=== PATIENT | female | born 1940 | race Caucasian/White ===

== ENCOUNTER 2019-02-24 01:48 | Inpatient (IN) ==
[2019-02-24] MEDS ORDERED: DUONEB (A & A) INH ONE (02:12)
[2019-02-24] MEDS ORDERED: MUCINEX PO ONE (02:13)
--- NOTE | 2019-02-24 02:15 | PROVIDER DOCUMENTATION ---
HPI-Respiratory General - General Chief Complaint: Shortness of Breath Stated Complaint: CONGESTION/COUGH Time Seen by Provider: 02/24/19 02:03 Source: family Allergies/Adverse Reactions: Patient Allergies Allergy/AdvReac Type Severity Reaction Status Date / Time ciprofloxacin [From Cipro] Allergy Unknown Verified 10/31/17 18:38 Penicillins Allergy Unknown Verified 10/31/17 18:38 Home Medications: Home Medication List Medication Instructions Recorded Confirmed Last Taken Type Amiodarone HCl 200 mg PO DAILY 02/05/17 02/24/19 10/31/17 08:00 History Apixaban [Eliquis] 2.5 mg PO BID 02/05/17 02/24/19 10/31/17 08:00 History Baclofen 5 mg PO BID 02/05/17 02/24/19 10/31/17 08:00 History Citalopram Hydrobromide 40 mg PO DAILY 02/05/17 02/24/19 10/31/17 08:00 History [Citalopram HBr] Docusate Sodium 100 mg PO DAILY 02/05/17 02/24/19 10/31/17 08:00 History Fluticasone 50 Mcg Nasal [place] 1 spray MAXIME DAILY 02/05/17 02/24/19 10/31/17 08:00 History [Flonase] Gemfibrozil 1 tab PO DAILY 02/05/17 02/24/19 10/31/17 08:00 History Glycerin Adult 1 cap RC DAILY PRN 02/05/17 02/24/19 02/05/17 History Lactulose 30 ml PO DAILY PRN 02/05/17 02/24/19 02/05/17 History Loratadine 1 tab PO DAILY 02/05/17 02/24/19 10/31/17 08:00 History Magnesium Hydroxide [Milk of 30 ml PO DAILY PRN 02/05/17 02/24/19 Unknown History Magnesia] Omeprazole 20 mg PO DAILY 02/05/17 02/24/19 10/31/17 08:00 History Rosuvastatin Calcium [Crestor] 20 mg PO HS 02/05/17 02/24/19 10/30/17 20:00 History Sennosides [Perdiem] 2 - 4 tab PO PRN PRN 02/05/17 02/24/19 Unknown History Cholecalciferol (Vitamin D3) 1,000 unit PO DAILY 12/22/17 02/24/19 Unknown History [Vitamin D3] Linaclotide [Linzess] 1 tab PO DAILY 12/22/17 02/24/19 Unknown History Acetaminophen [Tylenol] 650 mg PO Q6H PRN PRN tablet 12/24/17 02/24/19 Unknown Rx Albuterol 2.5MG/Ipratrop 0.5MG 3 ml INH Q4-6H PRN PRN neb 12/24/17 02/24/19 Unknown Rx [Duoneb (A & A)] Alprazolam 0.5 - 1 tab PO Q6-8H PRN PRN #10 12/24/17 02/24/19 Unknown Rx tab Gabapentin 300 mg PO DAILY #30 cap 12/24/17 02/24/19 Unknown Rx Hydrocodone Bit/Acetaminophen 1 tab PO BID PRN #20 tab 12/24/17 02/24/19 Unknown Rx [Hydrocodon-Acetaminophen 5-325] Potassium Chloride [K-Tab] 10 meq PO DAILY #7 tablet.er 06/06/18 02/24/19 Unknown Rx Albuterol Sulfate Inhaler 2 puff INH Q6H PRN PRN #1 inhaler 02/22/19 02/24/19 Unknown Rx [Ventolin Hfa] Codeine Phosphate/Guaifenesin 10 ml PO Q4H PRN PRN 02/24/19 02/24/19 Unknown History [Codeine-Guaifen 10-100 mg/5 ml] - History of Present Illness-Resp Nature of Presenting Problem: HISTORY OF STROKE WITH EXPRESSIVE APHASIA CAME IN WITH DAUGHTER WITH CONCERN OF PRODUCTIVE COUGH THAT'S WORSE WHICH PATIENT WAS SEEN RECENTLY. DENIES FEVER, CHILL, NIGHT SWEATS, RECENT TRAVEL. DENIES UNINTENTIONAL WEIGHT LOSS. DENIES DYSURIA. Review of Systems - Adult - REVIEW OF SYSTEMS - ADULT Constitutional: denies: chills, fever, fatique, night sweats, weight loss Eyes: reports: no symptoms reported Ears, Nose, Mouth & Throat: reports: no symptoms reported Cardiovascular: reports: no symptoms reported Respiratory: reports: cough, excessive sputum production, shortness of breath. denies: dyspnea on exertion, hemoptysis, pleurisy, wheezing Gastrointestinal: reports: no symptoms reported Genitourinary: reports: no symptoms reported Musculoskeletal: reports: no symptoms reported Integumentary: reports: no symptoms reported Neurological: reports: no symptoms reported Psychiatric: reports: no symptoms reported Endocrine: reports: no symptoms reported Hematologic/Lymphatic: reports: no symptoms reported Allergic/Immunologic: reports: no symptoms reported Past History - Adult - PAST MEDICAL HISTORY-ADULT Review of Records: reports: Old Records Reviewed Major Childhood Illnesses: reports: denies history Cardiovascular: reports: A-Fib, HTN, hyperlipidemia Respiratory: reports: denies history Gastrointestinal: reports: other (constipation) Obstetrical/Gynecological: reports: denies history Genitourinary: reports: denies history Musculoskeletal: reports: arthritis (ra deformed hands) Neurological: reports: CVA, stroke deficits (right sided), TIA Psychiatric: reports: depression Endocrine/Immune: reports: denies history Other Conditions: reports: denies history - PRIOR SURGERIES/PROCEDURES Surgical/Procedure History: reports: tonsillectomy, joint replacement (total knee) - IMMUNIZATION STATUS Childhood Immunizations: See Nurse Assessment Flu Vaccine: See Nurse Assessment - FAMILY HISTORY Family History: reviewed, not pertinent Physical Exam-General - PHYSICAL EXAM-ADULT Initial Vital Signs Reviewed: Yes - CONSTITUTIONAL General Appearance: appears well, alert, no apparent distress - EYES Eyes: PERRL/EOMI - HEAD, EARS, NOSE, MOUTH & THROAT HENMT: normocephalic/atraumatic, moist mucous membranes, normal ENT inspection - NECK Neck: non-tender, full range of motion, supple, normal inspection - RESPIRATORY Respiratory: chest non-tender, no pleuratic chest pain, no respiratory distress, no accessory muscle use, rales - CARDIOVASCULAR Cardiovascular: normal peripheral pulses, regular rate, rhythm, no edema, no gallop, no JVD, no murmur - GASTROINTESTINAL (ABDOMEN) Abdominal Exam: normal bowel sounds, non tender, soft - MUSCULOSKELETAL Back Exam: normal inspection, no CVA tenderness, no vertebral tenderness Extremity: normal range of motion, non-tender, normal gait - SKIN Integumentary: normal color, normal turgor, warm/dry - NEUROLOGIC Neurologic: grossly normal - PSYCHIATRIC Psych/Mental Status: normal mood/affect, normal thought content, normal thought process, oriented x 3 Progress - PLAN OF CARE/RESULTS Progress/Plan/Lab Results: Vital Signs - 8 hr 02/24/19 01:51 02/24/19 02:38 02/24/19 03:56 Temperature 97.7 F Pulse Rate 78 77 78 Respiratory Rate 22 22 21 Blood Pressure 101/71 102/66 O2 Sat by Pulse Oximetry 91 L 98 94 L Laboratory Results - last 24 hr 02/24/19 02/24/19 02/24/19 02:48 02:48 02:48 WBC 17.30 H D RBC 3.94 L Hgb 11.6 L Hct 37.7 MCV 95.7 MCH 29.4 MCHC 30.8 L RDW Std Deviation 14.7 H Plt Count 202 MPV 9.2 Immature Gran % (Auto) 0.5 Neut % (Auto) 86.2 H Lymph % (Auto) 7.2 L [place] % (Auto) 5.7 Eos % (Auto) 0.3 Baso % (Auto) 0.1 Immature Gran # (Auto) 0.09 H Neut # (Auto) 14.90 H Lymph # (Auto) 1.24 Wheeler # (Auto) 0.99 H Eos # (Auto) 0.06 Baso # (Auto) 0.02 Sodium 132 L Potassium 3.8 Chloride 102 Carbon Dioxide 19 L Anion Gap 11 BUN 15 Creatinine 0.7 Estimated GFR/1.73 m2 > 60 BUN/Creatinine Ratio 21 Glucose 86 Calculated Osmolality 265 Calcium 9.3 Magnesium 1.7 Plasma Lactate 02/24/19 02:48 WBC RBC Hgb Hct MCV MCH MCHC RDW Std Deviation Plt Count MPV Immature Gran % (Auto) Neut % (Auto) Lymph % (Auto) [place] % (Auto) Eos % (Auto) Baso % (Auto) Immature Gran # (Auto) Neut # (Auto) Lymph # (Auto) Wheeler # (Auto) Eos # (Auto) Baso # (Auto) Sodium Potassium Chloride Carbon Dioxide Anion Gap BUN Creatinine Estimated GFR/1.73 m2 BUN/Creatinine Ratio Glucose Calculated Osmolality Calcium Magnesium Plasma Lactate 0.8 Orders Category Date Time Status Admit - [facility] Routine AdmDCTranf 02/24/19 04:13 Active Resuscitation Status Routine Care 02/24/19 04:13 Ordered Saline Loc DIRECTED Care 02/24/19 04:13 Active Vital Signs Order ROUTINE Care 02/24/19 04:13 Active Z-Document. for Tele Applied ORDERED Care 02/24/19 04:14 Active NPO Diet 02/24/19 04:14 Active cxr [CHEST-PORTABLE] [RAD] Stat Exams 02/24/19 03:05 Taken BASIC METABOLIC PANEL [CHEM] Stat Lab 02/24/19 02:48 Completed BLOOD CULTURE [BLDCUL] Stat Lab 02/24/19 02:38 Ordered CBC WITH DIFF [HEME] Stat Lab 02/24/19 02:48 Results LACTATE, PLASMA [CHEM] Stat Lab 02/24/19 02:48 Completed MAGNESIUM [CHEM] Stat Lab 02/24/19 02:48 Completed 0.9% Sodium Chloride Inj [Ns] 1,000 ml Med 02/24/19 04:13 Active IV 75 mls/hr Albuterol 2.5MG/Ipratrop 0.5MG [Duoneb (A & A)] Med 02/24/19 02:12 Discontinued 3 ml INH NOW ONE CefTRIAXONE [Rocephin] 1 gm Med 02/24/19 04:15 Ordered 0.9% Sodium Chloride Inj [Ns] 50 ml IV Q24H Guaifenesin E.r. [Mucinex] Med 02/24/19 02:13 Discontinued 600 mg PO NOW ONE Metronidazole 500 mg/Ns [Flagyl 500 mg/Ns] Med 02/24/19 04:15 Ordered 500 mg in 100 ml IV Q6H Aerosol Treatments Routine Oth 02/24/19 02:12 Completed Aerosol Treatments Stat Oth 02/24/19 02:12 Completed Oxygen Device Routine Oth 02/24/19 04:14 Active Telemetry [OM.EQ] Routine Oth 02/24/19 04:13 Active Transfer/Admit Order [TRANSFER] Routine Transfer 02/24/19 04:15 Ordered Result Diagrams: 02/24/19 02:48 02/24/19 02:48 - REASSESSMENT Reassessment #1 Time Reassessed: 04:16 Status: other (THERE APPEARS TO BE RIGHT LOWER LOB INFILTRAITON WITH WBC CONCERN FOR ASPIRATION PNA IN PATIENT W/ EXPRESSIVE APHAGIA. SPOKE TO [facility]; WILL ADMIT.) Departure - Departure Date of Disposition Decision: 02/24/19 Time of Disposition Decision: 04:16 DIAGNOSIS: Aspiration pneumonia Disposition: ADMITTED INPATIENT 09 Certified Medical Emergency: Emergent Condition: Fair Referrals and Follow-Ups: Bry Pineda MD [Primary Care Provider] - - Critical Care Note This patient required my direct & personal management of CC.: No Attestation - Physician/ CANDICE Attestation Patient care was provided by Advanced Practice Provider:: No The physician spent face to face time with patient:: Yes Advanced Practice Provider documentation review:: Supervising physician onsite and consulted in the evaluation and care of this patient. The physician did have a face to face encounter with the patient.
[2019-02-24 03:30] LABS: AGAP 11; BUN 15 mg/dL (8-22); CALCIUM 9.3 mg/dL (8.8-10.2); CHLORIDE 102 mmol/L (98-107); COSMO 265; CREATININE 0.7 mg/dL (0.5-0.9); ESTIMATED GFR > 60; GLUCOSE 86 mg/dL (70-104); POTASSIUM 3.8 mmol/L (3.5-5.1); SODIUM 132 mmol/L (136-145); TCO2 19 mmol/L (25-35)
[2019-02-24 03:58] LABS: BASO# 0.02 X1000 (0.0-0.2); BASO% 0.1 % (0.0-0.8); EOS# 0.06 X1000 (0.0-0.7); EOS% 0.3 % (0.0-10.0); HEMATOCRIT 37.7 % (37.0-47.0); HEMOGLOBIN 11.6 g/dL (12.0-16.0); IMM GRAN# 0.09 X1000 (0.0-0.04); IMM GRAN% 0.5 % (0.0-0.5); LYMPH# 1.24 X1000 (1.2-3.4); LYMPH% 7.2 % (20.5-51.1); MCH 29.4 PG (27-31); MCHC 30.8 g/dL (33-37); MCV 95.7 FL (81-99); MONO# 0.99 X1000 (0.11-0.59); MONO% 5.7 % (1.7-9.3); MPV 9.2 FL (7.4-10.4); NEUT% 86.2 % (42.2-75.2); PLT 202 X1000 (130-400); RBC 3.94 XMIL (4.2-5.4); RDW 14.7 % (11.5-14.5)
[2019-02-24] MEDS ORDERED: NS 1,000 ML IV ONE (04:13)
[2019-02-24] MEDS: ROCEPHIN 1 GM in NS 50 ML IV SCH (04:15)
[2019-02-24 04:20] LABS: SEGS 90 % (42-75)
[2019-02-24 04:21] LABS: BANDS 1 % (0-1); LYMPHS 7 % (21-51); MONO 3 % (1-9)
[2019-02-24] MEDS ORDERED: DUONEB (A & A) INH PRN ×2 (07:07→10:06)
[2019-02-24] MEDS ORDERED: TYLENOL PR PRN (07:08)
[2019-02-24] MEDS: DUONEB (A & A) INH SCH ×5 (07:42→23:57)
[2019-02-24 07:48] LABS: URINE SOURCE CLEAN CATCH
[2019-02-24 08:10] LABS: BILIRUBIN URINE NEGATIVE (NEGATIVE); BLOOD URINE NEGATIVE (NEGATIVE); COLOR YELLOW; GLUCOSE URINE NEGATIVE (NEGATIVE); KETONE URINE NEGATIVE (NEGATIVE); LEUKOCYTES URINE NEGATIVE (NEGATIVE); NITRITE URINE NEGATIVE (NEGATIVE); PH URINE 6.5; PROTEIN URINE 30 mg/dL (NEGATIVE); SP GRAVITY URINE 1.024; TURBIDITY URINE CLEAR (CLEAR); UR EPITHELIAL CELLS <10 /HPF (<10); URINE BACTERIA NEGATIVE /HPF; URINE RBC <10 /HPF (<10); URINE WBC <10 /HPF (<10); UROBILINOGEN URINE NORMAL (NORMAL)
--- NOTE | 2019-02-24 08:25 | Diag Imaging Result Doc PS360 ---
EXAM: CHEST-PORTABLE - 02/24/2019 HISTORY: PROD COUGH TECHNIQUE: Portable chest COMPARISON: 02/22/2019 FINDINGS: Heart size is normal. There is chronic elevation of the right hemidiaphragm with right basilar subsegmental atelectasis. There are postsurgical changes on the left. There is no acute consolidation, pleural effusion, or pneumothorax identified. IMPRESSION: Chronic elevation of right hemidiaphragm with right basilar subsegmental atelectasis. No discrete pneumonia. Electronically signed by Ferdinand Ramos 02/24/2019 8:22 AM
[2019-02-24] MEDS: FLAGYL 500 MG/NS 500 MG/100 ML IVPB IV SCH ×3 (09:19→22:13)
[2019-02-24] MEDS ORDERED: NORCO-5 PO PRN (10:06)
[2019-02-24] MEDS ORDERED: SENOKOT PO PRN (10:06)
[2019-02-24] MEDS ORDERED: TYLENOL PO PRN (10:06)
[2019-02-24] MEDS ORDERED: ROBITUSSIN-AC PO PRN (10:06)
[2019-02-24] MEDS ORDERED: VENTOLIN HFA INH PRN (10:06)
[2019-02-24] MEDS ORDERED: XANAX PO PRN (10:06)
[2019-02-24] MEDS ORDERED: MILK OF MAGNESIA PO PRN (10:06)
[2019-02-24] MEDS ORDERED: LACTULOSE PO PRN (10:06)
[2019-02-24] MEDS: ELIQUIS PO SCH ×2 (12:10→22:24)
[2019-02-24] MEDS: LIORESAL PO SCH ×2 (12:10→22:24)
[2019-02-24] MEDS: CELEXA PO SCH (13:26)
[2019-02-24] MEDS: VITAMIN D PO SCH (13:27)
[2019-02-24] MEDS: PRILOSEC PO SCH (13:27)
[2019-02-24] MEDS: NEURONTIN PO SCH (13:27)
[2019-02-24] MEDS: COLACE PO SCH (13:27)
[2019-02-24] MEDS: LINZESS PO SCH (13:28)
[2019-02-24] MEDS: LOPID PO SCH (13:28)
[2019-02-24] MEDS: KLOR-CON PO SCH (13:28)
[2019-02-24] MEDS: CORDARONE PO SCH (13:28)
[2019-02-24] MEDS: CLARITIN PO SCH (13:28)
[2019-02-24] MEDS: FLONASE NAS SCH (13:29)
--- NOTE | 2019-02-24 14:24 | HISTORY AND PHYSICAL ---
CHIEF COMPLAINT: Shortness of breath. HISTORY OF PRESENT ILLNESS: The patient is a very pleasant early 72s- year-old female who unfortunately has a history of stroke with expressive aphasia, lives in assisted living. She presented with increased cough, congestion. The daughter was concerned that the cough was worse and she appears to be more sick. The daughter denies any fevers, chills, sweats denies any weight loss. Denies any production to the cough prior to yesterday. However, over the past day and a half has become much more productive and Ms. Cordon has appeared to be short of breath. ALLERGIES: Cipro and penicillin. MEDICATIONS: Amiodarone 200 daily, Eliquis 2.5 b.i.d., baclofen 5 b.i.d., Celexa 40, Colace 100, Flonase, gemfibrozil, glycerine suppositories as needed, lactulose as needed, loratadine, Crestor 20, vitamin D, Linzess daily, Tylenol, albuterol, Xanax as needed, gabapentin 300 daily, hydrocodone b.i.d. p.r.n. REVIEW OF SYSTEMS: Unobtainable from Ms. Cordon due to her expressive aphasia. However, she does nod no to chest pains fevers, nods no to any urinary pain or abdominal pain. As noted, she has had increased sputum production for the past 2 days, increased work of breathing. No reported history of fevers or chills. PAST MEDICAL HISTORY: Atrial fibrillation, hypertension, hyperlipidemia, chronic constipation, history of rheumatoid arthritis, stroke with right-sided deficits as well as expressive aphasia, recurrent TIAs, depression. PAST SURGICAL HISTORY: Tonsillectomy, joint replacement. FAMILY HISTORY: Noncontributory. SOCIAL HISTORY: Patient lives in assisted care. She does not smoke, drink or use illicit substances. PHYSICAL EXAMINATION: VITAL SIGNS: Reviewed. She is afebrile. Blood pressure is stable. Respiratory rate , O2 saturation 94%. GENERAL: Patient appears in no respiratory distress although she does have audible rhonchi, no wheezing. HEENT: Normocephalic. NECK: Supple. CARDIOVASCULAR: Regular rate. No murmurs. CHEST: Decreased breath sounds. Positive rhonchi. No wheezing. Equal bilaterally. Rhonchi appears worse on the right. ABDOMEN: Soft, nondistended. EXTREMITIES: Moves all extremities, although she does have decreased motion of her right due to her previous stroke. NEURO: Unchanged. ASSESSMENT: 1. Leukocytosis. White count 17. 2. Probable aspiration pneumonia. 3. Elevated hemidiaphragm. 4. High cholesterol. 5. History of cerebrovascular accident. 6. Chronic pain. 7. Chronic anxiety with depression. PLAN: We are going to admit the patient to the hospital, IV antibiotics, IV fluids, oxygen, and will follow. cc: Bry Pineda MD MTDD
[2019-02-24] MEDS: CRESTOR PO SCH (22:24)
[2019-02-25] MEDS: FLAGYL 500 MG/NS 500 MG/100 ML IVPB IV SCH ×2 (01:00→10:45)
[2019-02-25] MEDS: DUONEB (A & A) INH SCH ×6 (03:11→23:30)
[2019-02-25] MEDS: ROCEPHIN 1 GM in NS 50 ML IV SCH (03:49)
--- NOTE | 2019-02-25 05:56 | Diag Imaging Result Doc PS360 ---
EXAM: CHEST-PORTABLE HISTORY: Pneumonia TECHNIQUE: Single view COMPARISON: 02/24/2019 FINDINGS: Poor inspiratory effort. The right hemidiaphragm is elevated. No cardiomegaly. No pulmonary edema. No consolidation. Mild increased markings in the right base. No pleural effusions. IMPRESSION: Stable chest Electronically signed by Salomón Mendez 02/25/2019 5:54 AM
[2019-02-25] MEDS: LINZESS PO SCH (06:28)
[2019-02-25] MEDS: PRILOSEC PO SCH (06:28)
[2019-02-25 06:46] LABS: BASO# 0.01 X1000 (0.0-0.2); BASO% 0.1 % (0.0-0.8); EOS# 0.02 X1000 (0.0-0.7); EOS% 0.1 % (0.0-10.0); HEMATOCRIT 36.9 % (37.0-47.0); HEMOGLOBIN 11.2 g/dL (12.0-16.0); IMM GRAN# 0.08 X1000 (0.0-0.04); IMM GRAN% 0.6 % (0.0-0.5); LYMPH# 0.58 X1000 (1.2-3.4); LYMPH% 4.3 % (20.5-51.1); MCH 28.6 PG (27-31); MCHC 30.4 g/dL (33-37); MCV 94.4 FL (81-99); MONO# 0.83 X1000 (0.11-0.59); MONO% 6.2 % (1.7-9.3); MPV 9.1 FL (7.4-10.4); NEUT# 11.91 X1000 (1.4-6.5); NEUT% 88.7 % (42.2-75.2); PLT 194 X1000 (130-400); RBC 3.91 XMIL (4.2-5.4); RDW 14.5 % (11.5-14.5); WBC 13.43 X1000 (4.8-10.8)
[2019-02-25 07:00] LABS: LYMPHS 6 % (21-51); MONO 4 % (1-9); SEGS 90 % (42-75)
[2019-02-25 07:17] LABS: AGAP 12; ALBUMIN 3.5 g/dL (3.5-5.0); ALKALINE PHOSPHATASE 85 U/L (32-104); BUN 9 mg/dL (8-22); CALCIUM 9.1 mg/dL (8.8-10.2); CHLORIDE 104 mmol/L (98-107); COSMO 267; CREATININE 0.5 mg/dL (0.5-0.9); ESTIMATED GFR > 60; GLUCOSE 105 mg/dL (70-104); GOT 35 U/L (10-30); GPT 23 U/L (10-36); POTASSIUM 3.2 mmol/L (3.5-5.1); SODIUM 134 mmol/L (136-145); TCO2 18 mmol/L (25-35); TOTAL PROTEIN 6.5 g/dL (6.3-8.3)
[2019-02-25] MEDS ORDERED: KLOR-CON PO ONE (09:39)
[2019-02-25] MEDS: CORDARONE PO SCH (10:37)
[2019-02-25] MEDS: KLOR-CON PO SCH (10:38)
[2019-02-25] MEDS: FLONASE NAS SCH (10:38)
[2019-02-25] MEDS: COLACE PO SCH (10:38)
[2019-02-25] MEDS: LOPID PO SCH (10:38)
[2019-02-25] MEDS: ELIQUIS PO SCH ×2 (10:42→21:50)
[2019-02-25] MEDS: CLARITIN PO SCH (10:46)
[2019-02-25] MEDS: NEURONTIN PO SCH (10:46)
[2019-02-25] MEDS: CELEXA PO SCH (10:46)
[2019-02-25] MEDS: VITAMIN D PO SCH (10:47)
[2019-02-25] MEDS: LIORESAL PO SCH ×2 (10:47→21:50)
--- NOTE | 2019-02-25 15:46 | PROGRESS NOTE ---
DATE: 02/25/2019 SUBJECTIVE: Patient herself has no complaints. Her daughter has a multitude of questions pertaining to her cough, congestion, shortness of breath, her generalized weakness, her right upper extremity weakness due to her previous stroke, whether nasal suction devices work, if she can go to rehab. OBJECTIVE: Vital signs: Temperature 98 degrees, pulse 90, respiratory rate 18, BP 135/74. General: Patient is awake. She is in no respiratory distress. She does not answer questions verbally, but she can respond and answer questions appropriately by nodding her head yes or no. HEENT: Normocephalic. Neck: Supple. Cardiovascular: Regular rate. Chest: Much improved. Much less rhonchi. No crackles. No wheezing. Good air movement. Abdomen: Soft, nondistended. Extremities: Moves all extremities. ASSESSMENT: 1. Leukocytosis. 2. Aspiration pneumonia. 3. Elevated hemidiaphragm, chronically. 4. Hyponatremia, hypokalemia. 5. History of cerebrovascular accident with expressive dysphagia. 6. Chronic pain. PLAN: We are going to continue patient in the hospital. We will get physical therapy involved and consider rehab if needed. We will continue antibiotics. Further orders as needed. cc: Bry Pineda MD
[2019-02-25] MEDS: DOXYCYCLINE PO SCH (21:50)
[2019-02-25] MEDS: CRESTOR PO SCH (21:50)
[2019-02-26] MEDS: DUONEB (A & A) INH SCH ×6 (03:22→23:03)
[2019-02-26] MEDS: ROCEPHIN 1 GM in NS 50 ML IV SCH (03:32)
[2019-02-26] MEDS: PRILOSEC PO SCH (06:27)
[2019-02-26] MEDS: LINZESS PO SCH (06:27)
[2019-02-26] MEDS: FLONASE NAS SCH (10:03)
[2019-02-26] MEDS: KLOR-CON PO SCH (10:04)
[2019-02-26] MEDS: ELIQUIS PO SCH ×2 (10:04→21:35)
[2019-02-26] MEDS: CORDARONE PO SCH (10:04)
[2019-02-26] MEDS: LOPID PO SCH (10:04)
[2019-02-26] MEDS: LIORESAL PO SCH ×2 (10:04→21:35)
[2019-02-26] MEDS: DOXYCYCLINE PO SCH ×2 (10:04→21:35)
[2019-02-26] MEDS: CLARITIN PO SCH (10:05)
[2019-02-26] MEDS: VITAMIN D PO SCH (10:05)
[2019-02-26] MEDS: NEURONTIN PO SCH (10:05)
[2019-02-26] MEDS: CELEXA PO SCH (10:05)
[2019-02-26] MEDS: COLACE PO SCH (12:50)
--- NOTE | 2019-02-26 15:50 | PROGRESS NOTE ---
DATE: 02/26/2019 SUBJECTIVE: Patient herself has no complaints. Her daughter has a significant list of questions to include whether nasal suction or neti pot would be more effective. The daughter feels though she may need to go to rehab before going back to assisted living. OBJECTIVE: Vital signs: Temperature 98, pulse 78, respiratory rate 18, BP 137/58. General: Patient is awake, alert. She is in no respiratory distress. HEENT: Normocephalic. Neck: Supple. Cardiovascular: Regular rate. Chest: Relatively clear. Rhonchi appear to have cleared. There are no crackles, no wheezing. Good air movement, nonlabored. Abdomen: Soft, nondistended. Extremities: No edema. Neurologic: She has no focal changes from previous exams. Unable to effectively use her right upper extremity. ASSESSMENT: 1. Leukocytosis, resolved. 2. Aspiration pneumonia, resolved. 3. Hyponatremia. 4. Hypokalemia. 5. History of cerebrovascular accident with right-sided weakness. 6. Chronic anxiety. 7. Chronic pain. PLAN: We are going to continue patient in the hospital. Continue antibiotics for now. Continue breathing treatments and oxygen. Get physical therapy involved to see if she does need and would improve with rehab. cc: Bry Pineda MD
[2019-02-26] MEDS: CRESTOR PO SCH (21:34)
[2019-02-27] MEDS: DUONEB (A & A) INH SCH ×6 (02:40→23:20)
[2019-02-27] MEDS: ROCEPHIN 1 GM in NS 50 ML IV SCH (04:20)
[2019-02-27] MEDS: LINZESS PO SCH (06:40)
[2019-02-27] MEDS: PRILOSEC PO SCH (06:40)
[2019-02-27] MEDS: DOXYCYCLINE PO SCH ×2 (08:35→21:20)
[2019-02-27] MEDS: CLARITIN PO SCH (08:35)
[2019-02-27] MEDS: VITAMIN D PO SCH (08:35)
[2019-02-27] MEDS: NEURONTIN PO SCH (08:35)
[2019-02-27] MEDS: ELIQUIS PO SCH ×2 (08:35→21:20)
[2019-02-27] MEDS: CORDARONE PO SCH (08:35)
[2019-02-27] MEDS: CELEXA PO SCH (08:35)
[2019-02-27] MEDS: LOPID PO SCH (08:35)
[2019-02-27] MEDS: LIORESAL PO SCH ×2 (08:36→21:20)
[2019-02-27] MEDS: FLONASE NAS SCH (08:36)
[2019-02-27] MEDS: KLOR-CON PO SCH (08:36)
[2019-02-27] MEDS: COLACE PO SCH (08:47)
--- NOTE | 2019-02-27 12:38 | PROGRESS NOTE ---
DATE: 02/27/2019 SUBJECTIVE: Patient herself has no complaints. Her family notes that she appears to be breathing easier. PHYSICAL EXAMINATION: Vital signs: Temperature 98.2 degrees, pulse 75, respiratory rate 18, blood pressure 123/60. General: Patient is awake. Currently she is in no distress. HEENT: Normocephalic. Neck: Supple. Cardiovascular: Regular rate. Chest: Clear, nonlabored. No crackles, no rhonchi, no wheezing. Abdomen: Soft, nondistended. Extremities: Moves all extremities. Neurologic: No focal changes from previous exams. ASSESSMENT: 1. Leukocytosis, resolved. 2. Aspiration pneumonia, stable. 3. Adult failure to thrive with generalized weakness. 4. Focal weakness on the right side due to previous stroke. 5. High cholesterol. 6. Chronic anxiety and depression. 7. Hypokalemia. PLAN: We are going to continue the patient in the hospital, continue physical therapy. Expect that she will need rehab on discharge. Continue antibiotics. cc: Bry Pineda MD
[2019-02-27] MEDS: MYCOSTATIN SUSP PO SCH ×2 (16:14→21:20)
[2019-02-27] MEDS: CRESTOR PO SCH (21:20)
[2019-02-28] MEDS: DUONEB (A & A) INH SCH ×6 (03:26→23:08)
[2019-02-28] MEDS: ROCEPHIN 1 GM in NS 50 ML IV SCH (04:21)
[2019-02-28] MEDS: PRILOSEC PO SCH (06:04)
[2019-02-28] MEDS: LINZESS PO SCH (07:06)
[2019-02-28] MEDS: CLARITIN PO SCH (09:18)
[2019-02-28] MEDS: LIORESAL PO SCH ×2 (09:18→20:57)
[2019-02-28] MEDS: KLOR-CON PO SCH (09:18)
[2019-02-28] MEDS: LOPID PO SCH (09:18)
[2019-02-28] MEDS: CELEXA PO SCH (09:18)
[2019-02-28] MEDS: VITAMIN D PO SCH (09:18)
[2019-02-28] MEDS: CORDARONE PO SCH (09:19)
[2019-02-28] MEDS: MYCOSTATIN SUSP PO SCH ×4 (09:19→20:58)
[2019-02-28] MEDS: DOXYCYCLINE PO SCH ×2 (09:19→20:57)
[2019-02-28] MEDS: ELIQUIS PO SCH ×2 (09:19→20:57)
[2019-02-28] MEDS: FLONASE NAS SCH (09:19)
[2019-02-28] MEDS: NEURONTIN PO SCH (09:19)
[2019-02-28] MEDS: COLACE PO SCH (09:20)
--- NOTE | 2019-02-28 12:11 | PROGRESS NOTE ---
DATE: 02/28/2019 SUBJECTIVE: The patient has no new complaints. PHYSICAL EXAMINATION: Vital Signs: Reviewed. Temp 97.8 degrees, pulse 74, respiratory rate 18, BP 115/58. General: The patient is lying in the bed. She is in no distress. Breathing is nonlabored. HEENT: Normocephalic. Neck: Supple. Cardiovascular: Regular rate. Chest: Clear. Abdomen: Soft. Extremities: Moves all extremities. ASSESSMENT: 1. Adult failure to thrive with generalized weakness. 2. Leukocytosis, resolved. 3. Aspiration pneumonia, improved. 4. High cholesterol. 5. History of cerebrovascular accident. PLAN: We are going to continue the patient in the hospital today, get Roller Operator involved, and discharge planning tomorrow. Hopefully, she can discharge to rehab. cc: Bry Pineda MD
[2019-02-28] MEDS: CRESTOR PO SCH (20:58)
[2019-03-01] MEDS: DUONEB (A & A) INH SCH ×4 (03:11→15:29)
[2019-03-01] MEDS: ROCEPHIN 1 GM in NS 50 ML IV SCH (03:38)
[2019-03-01] MEDS: LINZESS PO SCH (06:15)
[2019-03-01] MEDS: PRILOSEC PO SCH (06:15)
[2019-03-01 08:03] VITALS: BP 112/62
[2019-03-01] MEDS ORDERED: OMNICEF PO SCH (09:00)
[2019-03-01] MEDS: CELEXA PO SCH (10:49)
[2019-03-01] MEDS: CLARITIN PO SCH (10:49)
[2019-03-01] MEDS: ELIQUIS PO SCH (10:50)
[2019-03-01] MEDS: FLONASE NAS SCH (10:50)
[2019-03-01] MEDS: COLACE PO SCH (10:50)
[2019-03-01] MEDS: CORDARONE PO SCH (10:50)
[2019-03-01] MEDS: DOXYCYCLINE PO SCH (10:50)
[2019-03-01] MEDS: NEURONTIN PO SCH (10:51)
[2019-03-01] MEDS: LOPID PO SCH (10:51)
[2019-03-01] MEDS: KLOR-CON PO SCH (10:51)
[2019-03-01] MEDS: LIORESAL PO SCH (10:51)
[2019-03-01] MEDS: MYCOSTATIN SUSP PO SCH (10:51)
[2019-03-01] MEDS: VITAMIN D PO SCH (10:52)
--- NOTE | 2019-03-01 12:37 | DISCHARGE SUMMARY ---
ADMISSION DATE: 02/24/2019 DISCHARGE DATE: 01/30/2019 PRIMARY CARE PHYSICIAN: Dr. Pineda. ADMISSION DIAGNOSES: 1. Leukocytosis. 2. Probable aspiration pneumonia. 3. Elevated hemidiaphragm. 4. High cholesterol. 5. History of cerebrovascular accident. 6. Chronic pain. 7. Chronic anxiety and depression. DISCHARGE DIAGNOSES: 1. Adult failure to thrive with generalized weakness. 2. Aspiration pneumonia, improved. 3. High cholesterol. 4. History of cerebrovascular accident. SUMMARY OF FINDINGS: This is a 78-year-old female who presented with increased cough and congestion and shortness of breath, had an elevated white count of 17,000, and was felt to have a possible aspiration pneumonia, placed on IV antibiotics. White count has improved. She has remained afebrile for greater than 24 hours, and it is now felt that she can safely be discharged to rehab. DISCHARGE MEDICATIONS: Will include doxycycline 100 mg p.o. b.i.d. for 5 days, [place] 5 one p.o. b.i.d. p.r.n., cefdinir 300 mg p.o. b.i.d. for 5 days, Xanax 0.5 to 1 mg p.o. every 6 to 8 hours p.r.n., Neurontin 300 mg p.o. daily, Eliquis 2.5 mg p.o. b.i.d., baclofen 5 mg p.o. b.i.d., citalopram 40 mg p.o. daily, Colace 100 mg p.o. daily, Tylenol 650 mg p.o. every 6 hours p.r.n., DuoNebs every 4 to 6 hours p.r.n., potassium 10 mEq p.o. daily, Ventolin inhaler 2 puff inhalation every 6 hours p.r.n., codeine/guaifenesin 10 mL p.o. every 4 hours p.r.n., vitamin D3 at 1000 units p.o. daily. FOLLOWUP: She will follow up with facility physician during her rehab stay, and then follow up with her primary care physician once rehab is completed. TIME SPENT: A 35-minute discharge. Dictated by DAVIN Nagy for Bry Pineda MD cc: DAVIN Nagy MD
--- NOTE | 2019-03-02 00:59 | PROGRESS NOTE ---
DATE: 03/01/2019 SUBJECTIVE: The patient herself has no complaints. OBJECTIVE: Vital Signs: Reviewed. Temperature 97.9 degrees, pulse 77, respiratory rate 18, blood pressure 115/58. General: The patient is awake, currently she is in no distress. HEENT: Normocephalic. Neck: Supple. Cardiovascular: Regular rate. Chest: Clear. Abdomen: Soft. Extremities: Moves all extremities. Neurologic: No changes. ASSESSMENT: 1. Nausea and vomiting. 2. Abdominal pain. 3. Tremors. 4. Myalgias, resolved. 5. Leukocytosis, resolved. 6. Aspiration pneumonia, improved. 7. Elevated hemidiaphragm, chronic. 8. High cholesterol. 9. Hypokalemia. 10. Hyponatremia. PLAN: We will continue the patient in the hospital, hopefully she can transition to rehabilitation later this afternoon. cc: Bry Pineda MD
== END 2019-03-01 16:30 | DRG 178 ==
LOC: P.ED 01:48 → P.MEDSURG 04:57
PROVIDERS: ATTEND Family Medicine